=== PATIENT | female | born 1980 | race Caucasian/White ===

== ENCOUNTER 2016-10-18 03:00 | Emergency (ER) | payer SELFPAY | END 2016-10-18 04:05 | disposition home or self-care (01) | LOC: CED 03:00 | DX: H66.002 Acute suppurative otitis media without spontaneous rupture of ear drum, left ear (principal); L03.113 Cellulitis of right upper limb; F17.210 Nicotine dependence, cigarettes, uncomplicated | CPT/HCPCS: 99282 ==

== ENCOUNTER 2016-12-22 08:51 | Emergency (ER) | payer OTHER ==
[~2016-12-22] VITALS: Ht 175.3 cm; Wt 74.8 kg
[2016-12-22 09:59] LABS: BASOPHIL% 0.5 % (0-2.5); EOSINOPHIL# 0.2 X10e3 (0-0.7); EOSINOPHIL% 2.9 % (0.0-7.0); HEMATOCRIT 23.6 % (35.0-45.0); LYMPHOCYTE# 1.1 X10e3 (1.0-3.5); LYMPHOCYTE% 14.5 % (17.0-45.0); MEAN CELL VOLUME 83.4 FL (83-96); MEAN CORPUSCULAR HEMOGLOBIN 28.2 PG (28-34); MEAN CORPUSCULAR HGB CONC 33.8 g/dL (30-36); MEAN PLATELET VOLUME 8.3 FL (6.5-11.5); MONOCYTE# 0.6 X10e3 (0-1.0); MONOCYTE% 8.4 % (3.0-12.0); NEUTROPHIL# 5.5 X10e3 (1.5-7.1); NEUTROPHIL% 73.7 % (40-75); PLATELET COUNT 231 X10e3 (140-420); RED BLOOD COUNT 2.83 X10e (3.90-5.30); RED CELL DISTRIBUTION WIDTH 16.3 % (11.0-15.5); WHITE BLOOD COUNT 7.5 X10e3 (4.0-10.5)
[2016-12-22 10:00] LABS: DIFF IND NO
[2016-12-22 10:06] LABS: INR 1.1; PROTHROMBIN TIME (PATIENT) 11.6 SECONDS (10.0-11.7)
[2016-12-22 10:21] LABS: ALBUMIN SERUM 2.8 g/dL (3.5-5.0); BILIRUBIN, DIRECT 0.1 mg/dL (0.0-0.2); BILIRUBIN,INDIRECT 0.1 mg/dL (0.0-0.9); BILIRUBIN,TOTAL 0.2 mg/dL (0.2-2.0); BUN/CREATININE RATIO 16.25; CALCIUM SERUM 8.5 mg/dL (8.4-10.2); CREATININE SERUM 0.8 mg/dL (0.6-1.4); GLOM FILT RATE Estimated 93.6 mL/min (>60); POTASSIUM 4.1 mmol/L (3.5-5.1); PROTEIN TOTAL SERUM 6.7 g/dL (6.0-8.3)
[2016-12-22 11:15] LABS: URINE SOURCE CLEAN CATCH
[2016-12-22 11:22] LABS: URINE APPEARANCE CLEAR; URINE BILIRUBIN NEG (NEG); URINE BLOOD NEG (NEG); URINE COLOR YELLOW; URINE GLUCOSE NEG (NEG); URINE KETONE NEG (NEG); URINE LEUKOCYTE ESTERASE NEG (NEG); URINE NITRATE NEG (NEG); URINE PROTEIN NEG (NEG); URINE SPECIFIC GRAVITY 1.018 (1.003-1.035)
[2016-12-22 11:53] LABS: CULTURE INDICATED? NO
== END 2016-12-22 12:15 | disposition home or self-care (01) ==
LOC: CED 08:51
PROVIDERS: Emergency Medicine
DX: M54.9 Dorsalgia, unspecified (principal); F11.10 Opioid abuse, uncomplicated; F17.200 Nicotine dependence, unspecified, uncomplicated; Z98.51 Tubal ligation status; Z88.8 Allergy status to other drugs, medicaments and biological substances
CPT/HCPCS: 36415; 80048; 80076; 81003; 84703; 85025; 85610; 85730; 87040; 87077; 87186; 99283

== ENCOUNTER 2016-12-22 22:57 | Emergency (ER) | payer OTHER ==
[~2016-12-22] VITALS: Ht 175.3 cm; Wt 76.2 kg
--- NOTE | ~2016-12-22 | CT96 ---
[facility] A Service of [facility] RADIOLOGY TEXT RESULTS PATIENT: CHIOMA BAJWA LOCATION: [facility] : 76 UNIT #: [id number] AGE: [address]: Dani Harp MD SEX: F ORDER DR: [id number] [facility] [address] [place], [place] [address] [id number] E MR#: [id number] Acc #: [id number] NAME: CHIOMA BAJWA : 1980 SEX: F STUDY DATE/TIME: 12/23/2016 02:16 UNIT: [facility] ROOM: STUDY DESCRIPTION: CT Lumbar Spine W Cont Attending Physician: Dani Harp M.D. Ordering Physician: Dani Harp M.D. Primary Care Physician: No Primary Care Physician MEDICAL IMAGING REPORT This report is preliminary unless electronic signature is present EXAM Lumbar spine CT 12/23/2016 at 02:16 INDICATIONS Extreme low back pain for 1 week. Difficulty with ambulation. TECHNIQUE Axial images were obtained through the lumbar spine following IV contrast administration. Multiplanar reformats were obtained. No comparison. This CT exam was performed with one or more of the following radiation dose reduction techniques: automatic control, adjustment of mA and/or kV according to patient size, and iterative reconstruction. FINDINGS There is no fracture or subluxation. There was no pathologic contrast enhancement. There is no evidence of an abscess. At L5-S1, there is facet arthropathy. There is a mild posterior broad-based disc bulge. There is mild bilateral foraminal stenosis. At L4-5, there is facet arthropathy and there is a posterior broad-based disc bulge. There is mild bilateral foraminal narrowing. At L3-4, there is a very mild disc bulge with facet arthropathy. There is minimal narrowing of both foramina. The remaining lumbar discs are normal. No central stenosis at any level. IMPRESSION 1. No fracture or malalignment. 2. Relatively mild degenerative disease as above. No central stenosis at any level. 3. No pathologic contrast enhancement. No evidence of abscess. [facility] A Service of [facility] RADIOLOGY TEXT RESULTS PATIENT: CHIOMA BAJWA LOCATION: [facility] : 76 UNIT #: [id number] AGE: [address]: Dani Harp MD SEX: F ORDER DR: Dictated by... Bhupendra Christian Jr., M.D. THIS IS AN ELECTRONICALLY VERIFIED REPORT Bhupendra Christian Jr., M.D. at 12/24/2016 4:15 AM AMBER/leann TD: 12/23/2016 23:53 JOB #: [id number] MEDICAL IMAGING REPORT Page 1 of 1 COPY
[2016-12-23 02:30] LABS: BASOPHIL# 0.1 X10e3 (0-0.3); BASOPHIL% 0.8 % (0-2.5); EOSINOPHIL# 0.2 X10e3 (0-0.7); EOSINOPHIL% 2.4 % (0.0-7.0); HEMATOCRIT 25.3 % (35.0-45.0); HEMOGLOBIN 8.4 gm/dL (12.0-16.0); LYMPHOCYTE# 1.3 X10e3 (1.0-3.5); LYMPHOCYTE% 17.7 % (17.0-45.0); MEAN CELL VOLUME 83.5 FL (83-96); MEAN CORPUSCULAR HEMOGLOBIN 27.7 PG (28-34); MEAN CORPUSCULAR HGB CONC 33.1 g/dL (30-36); MEAN PLATELET VOLUME 8.9 FL (6.5-11.5); MONOCYTE# 0.5 X10e3 (0-1.0); MONOCYTE% 6.5 % (3.0-12.0); NEUTROPHIL# 5.3 X10e3 (1.5-7.1); NEUTROPHIL% 72.6 % (40-75); PLATELET COUNT 238 X10e3 (140-420); RED BLOOD COUNT 3.03 X10e (3.90-5.30); RED CELL DISTRIBUTION WIDTH 16.7 % (11.0-15.5); WHITE BLOOD COUNT 7.4 X10e3 (4.0-10.5)
[2016-12-23 02:32] LABS: DIFF IND NO
== END 2016-12-23 03:42 | disposition home or self-care (01) ==
LOC: CED 22:57
PROVIDERS: Emergency Medicine
DX: M54.5 Low back pain (principal); F17.200 Nicotine dependence, unspecified, uncomplicated; Z88.5 Allergy status to narcotic agent
CPT/HCPCS: 36415; 72132; 85025; 96374; 99284; J1885; J2270; Q9967